=== PATIENT | female | born 2000 | race Caucasian/White ===

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

== ENCOUNTER 2022-02-22 17:21 | Emergency (ER) | payer MEDICAID ==
[~2022-02-22] VITALS: Ht 165.1 cm; Wt 68.2 kg
[~2022-02-22 17:21] MED LIST changes: +CIPR2.5D14 RIGHTEYE
[2022-02-22 17:38] VITALS: BP 100/63
[2022-02-22 21:05] LABS: MONOTEST POSITIVE (Neg)
== END 2022-02-22 21:34 | disposition home or self-care (01) ==
LOC: ER 17:22
DX: B27.90 Infectious mononucleosis, unspecified without complication (principal); Z88.2 Allergy status to sulfonamides; Z79.899 Other long term (current) drug therapy
CPT/HCPCS: 36415; 86308; 87081; 87880; 99283

== ENCOUNTER 2024-11-03 14:30 | Emergency (ER) | payer BC, MEDICAID ==
[~2024-11-03] VITALS: Ht 165.1 cm; Wt 75.7 kg
[~2024-11-03 14:30] MED LIST changes: +CIPR2.5D12 RIGHTEYE; -CIPR2.5D14 RIGHTEYE
[2024-11-03] MEDS: ibuprofen tablet 400 MG TABLET PO ONE (16:06)
[2024-11-03 16:35] VITALS: BP 116/87; PULSE 84; RESP 16; TEMP 98; O2SAT 98
== END 2024-11-03 16:38 | disposition home or self-care (01) ==
LOC: ER 14:31
DX: M54.2 Cervicalgia (principal); Z88.2 Allergy status to sulfonamides; Z88.1 Allergy status to other antibiotic agents; Z79.899 Other long term (current) drug therapy; V89.2XXA Person injured in unspecified motor-vehicle accident, traffic, initial encounter; Y93.89 Activity, other specified; Y92.89 Other specified places as the place of occurrence of the external cause; Y99.8 Other external cause status
CPT/HCPCS: 72040; 99283